=== PATIENT | male | born 1980 | race Caucasian/White ===

== ENCOUNTER → 2016-11-11 | Outpatient (REF) ==
[~2016-11-11] MED LIST: NO HOME MEDICATIONS; PEPCID 20MG TAB20 MG PO; QUESTRAN4 GM/9 GM PO
== END ==
LOC: WSOH 12:50
DX: Z11.1 Encounter for screening for respiratory tuberculosis (principal)

== ENCOUNTER → 2016-11-20 | Outpatient (REF) | LOC: WSOH 08:34 | DX: Z00.00 Encounter for general adult medical examination without abnormal findings (principal) ==

== ENCOUNTER → 2020-12-14 | Outpatient (CLI) | payer SELFPAY | LOC: WSOH 09:00 | DX: Z02.89 Encounter for other administrative examinations (principal) | CPT/HCPCS: G0463 ==